=== PATIENT | female | born 1950 | race Caucasian/White ===

== ENCOUNTER 2024-02-13 06:17 | Day surgery (SDC) | payer MEDICARE, OTHER, SELFPAY ==
[2024-02-13] VITALS (12 sets, daily range): BP systolic 96–171; BP diastolic 56–86; BMI 36.2
[2024-02-13 06:52] LABS: Hematocrit 43.1 % (37.0-47.0); Hemoglobin 14.7 g/dL (12.0-16.0); Mean Corp Hgb Conc. 34.1 g/dL (33.0-37.0); Mean Corpuscular Hgb 30.8 pg (27.0-31.0); Mean Corpuscular Volume 90.4 fL (81.0-99.0); Mean Platelet Volume 9.9 fL (7.4-10.4); Platelet Count 280 10^3/uL (130-400); Red Blood Cell Count 4.77 10^6/uL (4.20-5.40); Red Cell Dist. Width 13.6 % (11.5-14.5); White Blood Cell Count 8.1 10^3/uL (4.8-10.8)
[2024-02-13 07:04] LABS: ALT (SGPT) 36 U/L (0-35); AST (SGOT) 33 U/L (14-36); Albumin 4.1 g/dl (3.5-5.0); Alkaline Phosphatase 84 U/L (38-126); Blood Urea Nitrogen 16 mg/dl (7-17); Calcium 9.7 mg/dl (8.4-10.2); Carbon Dioxide 25 mmol/L (22-30); Chloride 110 mmol/L (98-107); Estimated Creatinine Clearance 78 ml/min; Glucose 108 mg/dl (70-99); Potassium 3.8 mmol/L (3.5-5.1); Sodium 137 mmol/L (135-145); Total Bilirubin 0.5 mg/dl (0.2-1.3); eGFR > 60.00
[2024-02-13] MEDS: LASIX 20 MG IV (09:32)
[2024-02-13] MEDS: NSS 1000 IV (09:33)
--- NOTE | 2024-02-13 09:48 | ITS.CL.CATH ---
Alterations Expert - Catheterization
Cardiac Catheterization
Procedure Report:
LEFT AND RIGHT HEART CATHETERIZATION
Date of Procedure: February 13, 2024
Referring: Clifton Claire
PROCEDURES:
1. Left catheterization, coronary angiogram.
2. Right heart catheterization.
3. Ultrasound-guided access
INDICATION: Ms Newby is a 73-year-old female morbidly obese with past medical history of poorly controlled hypertension, hyperlipidemia, paroxysmal atrial fibrillation status post prior ablation now only on daily baby aspirin in sinus rhythm,
statin intolerance maintained on Zetia, last LDL 132 with ongoing dyspnea on exertion and intermittent episodes of chest tightness found to have normal perfusion on nuclear stress testing in September 2023 and echocardiogram from 2022 showing normal
biventricular function, LVH without significant valvular disease. Given persistent symptoms she is now being referred for left and right heart catheterization.
ACCESS:
1. Right radial artery, 5 [place] sheath, under ultrasound guidance. Given significant right subclavian tortuosity and possible bovine arch this access had to be aborted.
2. Right brachial vein, 6 [place] sheath, under ultrasound guidance.
3. Right common femoral artery, 5 [place] sheath, under ultrasound guidance using a micropuncture kit.
HEMODYNAMICS : (mmHg)
RA (m) : 15
RV (s/d,m) : 48/8, 16
PA (s/d, m) : 42/24, 32
PCWP (m) : 21
PA saturation: 71.2% on room air
AO saturation: 97.7% on room air
Cardiac Output : 4.03 L/min by Nallely calculation
Cardiac Index : 2.01 L/min/m-2 by Nallely calculation
Systemic vascular resistance: 1944 dsc^(-5)
Pulmonary vascular resistance: 2.73 cardoza unit
Heart rate: 75 bpm
AO (s/d) : 166/75
LV (s/d) : 169/13
LVEDP : 23
CORONARY FINDINGS
DOMINANCE: Left
LEFT MAIN: The left main artery is a large-caliber, short vessel which gives rise to the left anterior descending artery and the left circumflex artery. Angiographically normal vessel
LEFT ANTERIOR DESCENDING: The left anterior descending artery is a medium to large caliber vessel which gives rise to multiple small to medium caliber diagonal branches as it courses through the anterior interventricular groove and wraps around the
apex. There is minimal luminal irregularities.
CIRCUMFLEX: The left circumflex artery is a large-caliber, dominant vessel which gives rise to 1 major obtuse marginal branch, a small to medium caliber left posterolateral branch and the left posterior descending artery. There is minimal luminal
irregularities.
RIGHT CORONARY ARTERY: The right coronary artery is a medium caliber, nondominant vessel with eccentric 30 to 40% ostial stenosis.
SEDATION: 63 minutes of procedural sedation was utilized. An independent medical director of hospice was present to assist with and help manage the patient's level of consciousness and physiologic status.
RADIATION SUMMARY: Fluoro Time (min): 11.3, Dose (mGy): 462.55, DAP (Gy.cm2) : 41.6
Closure Device:
1. 6 [place] Angio-Seal over the right common femoral arterial stick with successful hemostasis.
2. Vascular band over right radial artery with 12 cc of air.
3. Manual pressure was held over the right brachial venous access site with successful hemostasis.
CONCLUSIONS
1. Non-obstructive coronary artery disease.
2. Significantly elevated right and left-sided filling pressures with borderline cardiac output and significantly elevated systemic vascular resistance in the setting of systemic hypertension
RECOMMENDATIONS
1. Medical therapy for better blood pressure control and diuretics to improve filling pressures.
2. Aggressive management of cardiovascular risk factors. Given history of statin intolerance, consideration of PCSK9 inhibitors as an outpatient. Continue Zetia for now.
3. Bedrest per protocol. Wean radial band per protocol.
Copy to: Clifton Claire
Malena Solares MD, [facility], [facility]
== END 2024-02-13 13:00 | disposition home or self-care (01) ==
LOC: CATH 06:17
PROVIDERS: ATTENDING PHYSICIAN Internal Medicine Interventional Cardiology; FAMILY PHYSICIAN Family Medicine; OTHER PHYSICIAN Nuclear Medicine Nuclear Cardiology
DX: I25.10 Atherosclerotic heart disease of native coronary artery without angina pectoris (principal); E66.01 Morbid (severe) obesity due to excess calories; I10 Essential (primary) hypertension; E78.5 Hyperlipidemia, unspecified; R06.09 Other forms of dyspnea; I48.0 Paroxysmal atrial fibrillation; I11.9 Hypertensive heart disease without heart failure; Z79.82 Long term (current) use of aspirin
CPT/HCPCS: 99152; 99153; 80053; 85027; 93005; 93460; C1760; C1769; C1894; Q9967

== ENCOUNTER → 2024-03-27 10:40 | Outpatient (REF) | payer MEDICARE, OTHER, SELFPAY | LOC: RAD 10:40 | PROVIDERS: ATTENDING PHYSICIAN Physician Assistant Medical; FAMILY PHYSICIAN Family Medicine | DX: S51.002A Unspecified open wound of left elbow, initial encounter (principal) | CPT/HCPCS: 73080 ==

== ENCOUNTER → 2024-04-17 14:28 | Outpatient (REF) | payer MEDICARE, OTHER, SELFPAY | LOC: CLAB 14:28 | PROVIDERS: ATTENDING PHYSICIAN Orthopaedic Surgery | DX: M19.071 Primary osteoarthritis, right ankle and foot (principal) | CPT/HCPCS: 88304 ==

== ENCOUNTER → 2024-06-11 09:01 | Outpatient (REF) | payer MEDICARE, OTHER, SELFPAY | LOC: DHSLP 09:01 | PROVIDERS: ATTENDING PHYSICIAN Internal Medicine Critical Care Medicine; FAMILY PHYSICIAN Family Medicine | DX: G47.33 Obstructive sleep apnea (adult) (pediatric) (principal) | CPT/HCPCS: 95800 ==

== ENCOUNTER → 2024-10-01 12:58 | Outpatient (REF) | payer MEDICARE, OTHER, SELFPAY | LOC: HWRCS 12:58 | PROVIDERS: ATTENDING PHYSICIAN Nuclear Medicine Nuclear Cardiology; FAMILY PHYSICIAN Family Medicine | DX: R06.02 Shortness of breath (principal) | CPT/HCPCS: 93306 ==

== ENCOUNTER → 2024-10-19 15:49 | Outpatient (REF) | payer MEDICARE, OTHER, SELFPAY | LOC: HWRAD 15:49 | PROVIDERS: ATTENDING PHYSICIAN Nurse Practitioner Adult Health | DX: R06.02 Shortness of breath (principal); J06.9 Acute upper respiratory infection, unspecified | CPT/HCPCS: 71046 ==

== ENCOUNTER → 2024-12-31 10:31 | Outpatient (REF) | payer MEDICARE, OTHER, SELFPAY | LOC: DHSLP 10:31 | PROVIDERS: ATTENDING PHYSICIAN Internal Medicine Critical Care Medicine | DX: G47.33 Obstructive sleep apnea (adult) (pediatric) (principal); G47.31 Primary central sleep apnea; G47.00 Insomnia, unspecified | CPT/HCPCS: 95810 ==

== ENCOUNTER → 2025-06-10 12:28 | Outpatient (REF) | payer MEDICARE, OTHER, SELFPAY | LOC: DHSLP 12:28 | PROVIDERS: ATTENDING PHYSICIAN Internal Medicine Critical Care Medicine; FAMILY PHYSICIAN Family Medicine | DX: G47.33 Obstructive sleep apnea (adult) (pediatric) (principal) | CPT/HCPCS: 95800 ==

== ENCOUNTER → 2025-08-06 12:46 | Outpatient (REF) | payer MEDICARE, OTHER, SELFPAY | LOC: RAD 12:46 | PROVIDERS: ATTENDING PHYSICIAN Registered Nurse; FAMILY PHYSICIAN Family Medicine | DX: M79.89 Other specified soft tissue disorders (principal); M79.661 Pain in right lower leg | CPT/HCPCS: 93971 ==

== ENCOUNTER → 2025-08-12 12:27 | Outpatient (REF) | payer MEDICARE, OTHER, SELFPAY | LOC: HWWDC 12:27 | PROVIDERS: ATTENDING PHYSICIAN Family Medicine | DX: Z12.31 Encounter for screening mammogram for malignant neoplasm of breast (principal) | CPT/HCPCS: 77063; 77067 ==